=== PATIENT | male | born 1990 | race Caucasian/White ===

== ENCOUNTER 2024-11-27 04:08 | Inpatient (IN) | payer BC, SELFPAY ==
[2024-11-26 17:54] VITALS: BP 137/76
[2024-11-26 18:11] LABS: % Basophils 0.2 % (0-2); % Eosinophils 0.2 % (0-6); % Immature Granulocytes 0.4 % (0-0.5); % Monocytes 9.1 % (1.7-9.3); % Neutrophils 78.1 % (42.2-75.2); Absolute Immature Granulocytes 0.1 10^3/uL (0-0.05); Absolute Lymphocytes 1.6 10^3/uL (1.2-3.4); Absolute Monocytes 1.2 10^3/uL (0.1-0.6); Absolute Neutrophils 10.4 10^3/uL (1.4-6.5); Hematocrit 43.6 % (39.0-52.0); Hemoglobin 14.9 g/dL (13.0-18.0); Mean Corp Hgb Conc. 34.2 g/dL (33.0-37.0); Mean Corpuscular Hgb 28.6 pg (27.0-31.0); Mean Corpuscular Volume 83.7 fL (80.0-94.0); Mean Platelet Volume 9.8 fL (7.4-10.4); Nucleated Red Blood Cells % 0 % (-); Platelet Count 258 10^3/uL (130-400); Red Blood Cell Count 5.21 10^6/uL (4.70-6.10); Red Cell Dist. Width 12.2 % (11.5-14.5); White Blood Cell Count 13.4 10^3/uL (4.8-10.8)
[2024-11-26 18:29] LABS: ALT (SGPT) 28 U/L (0-50); AST (SGOT) 42 U/L (17-59); Albumin 4.9 g/dl (3.5-5.0); Alkaline Phosphatase 59 U/L (38-126); Blood Urea Nitrogen 14 mg/dl (9-20); Calcium 9.1 mg/dl (8.4-10.2); Carbon Dioxide 27 mmol/L (22-30); Chloride 95 mmol/L (98-107); Glucose 119 mg/dl (70-99); Potassium 4.1 mmol/L (3.5-5.1); Sodium 135 mmol/L (135-145); Total Bilirubin 1.1 mg/dl (0.2-1.3); Total Protein 7.9 g/dl (6.3-8.2); eGFR > 60.00
[2024-11-26 20:31] VITALS: BMI 24.3
--- NOTE | 2024-11-26 20:32 | ED.GENMED ---
History of Present Illness
<REX Cooper - Last Filed: 11/27/24 03:38>
General
Chief Complaint: Abdominal Pain
Source: patient
Exam Limitations: none
Time Seen by Provider: 11/26/24 20:16
History of Present Illness
History of Present Illness:
This is a 34 year old male that comes in with c/o abd pain. States that he started with lower abd pain about 24 hours ago. States that he has been up since yesterday as he did not sleep last night. States that he has pain when he had a BM and that
for a while he was going every 45-1 hour. States that his stool was getting smaller and smaller. States that it has a weird smell. States that his last BM was like Powder. States that he had chills when he go here and is nauseated. States that he is
also getting a headache. States that he went to the PCP and was sent to the ER. Denies any fever, chest pain, SOB, vomiting, diarrhea, dizziness, urinary burning.
Past History
<REX Cooper - Last Filed: 11/27/24 03:38>
Past History
ED Past Medical History: Arrthythmia (Palpitations)
ED Past Surgical History: None
Social History
Tobacco: Non-smoker
Alcohol: None
Drug: None
Personal: Single
Living: with family
Employment: Employed
Review of Systems
<REX Cooper - Last Filed: 11/27/24 03:38>
Review of Systems
All Other Systems: ROS reviewed and negative except as documented in HPI and ROS
Constitutional: Reports chills; Denies fever
EENT: Reports no symptoms
Respiratory: Reports no symptoms; Denies cough or trouble breathing
Cardiac: Reports no symptoms; Denies chest pain
ABD/GI: Reports abdominal pain and nausea; Denies vomiting or diarrhea
: Reports no symptoms; Denies dysuria, frequency or urgency
Musculoskeletal: Reports no symptoms
Skin: Reports no symptoms
Neurological: Reports headache; Denies dizzy
Psychiatric: Reports no symptoms
Phy Exam
<REX Cooper - Last Filed: 11/27/24 03:38>
General Physical Exam
General Presentation: mild distress
General age: appears stated age
General Skin: warm and dry
General Habitus: normal
General Mental: alert
General Hydration: dry mucous membranes
ENT Exam
ENT Exam: TM's normal, pharynx normal and neck supple
Eye Exam
Eye Exam: EOMI
Cardiovascular Exam
Cardiovascular Exam: regular rate/rhythm, no edema, no murmur and normal peripheral pulses
Pulmonary Exam
Pulmonary Exam: lungs clear, no respiratory distress, no rales, chest non tender, no crackles, no rhonchi, no wheezing and no cough
Gastrointestinal Exam
Gastrointestinal Exam: normal bowel sounds, soft, no organomegaly, no pulsatile mass, non distended and tender (Right lower abd tenderness with palpation Positive for Rebound tenderness)
Musculoskeletal Exam
Musculoskeletal Exam: full ROM and no edema
Skin Exam
Skin Exam: normal color, warm/dry, no rash and no petechia
Psychiatric Exam
Psychiatric Exam: normal mood/affect
Course
<REX Cooper - Last Filed: 11/27/24 03:38>
Orders/Labs/Results
Orders:
Orders
11/26/24 17:59
Complete Blood Count/With Diff Urgent
Comprehensive Metabolic Panel Urgent
11/26/24 20:29
0.9% Sodium Chloride 1000 ml [Nss] 1,000 ml IV BOLUS
HYDROmorphone [Dilaudid] 0.5 mg IV NOW STA
Ondansetron Injectable [Zofran] 4 mg IV NOW STA
11/26/24 20:31
Iohexol [Omnipaque] See Protocol PO NOW STA
11/26/24 20:32
CT Abd/pel W Iv And Oral Contr Urgent
Comment:
Reason For Exam: Right lower abd pain
11/26/24 21:56
Urinalysis Reflex To Culture Urgent
Date Specimen was Collected: 11/26/24
Time Specimen was Collected: 21:51
11/27/24 02:33
Acetaminophen 1000MG/100Ml [Ofirmev] 1,000 mg in 100 ml IV ONCE
Acetaminophen IV Indication:: ED Narcotic Naive Pt-ONCE
Abnormal Lab Results
11/26/24 11/26/24
17:59 21:56
WBC 13.4 H 10^3/uL
(4.8-10.8)
Abs Immat Gran (auto) 0.1 H 10^3/uL
(0-0.05)
Absolute Neuts (auto) 10.4 H 10^3/uL
(1.4-6.5)
Absolute Monos (auto) 1.2 H 10^3/uL
(0.1-0.6)
Neutrophils % 78.1 H %
(42.2-75.2)
Lymphocytes % 12.0 L %
(20.5-51.1)
Chloride 95 L mmol/L
(98-107)
Glucose 119 H mg/dl
(70-99)
Urine Ketones 1+ A
(Negative)
11/26/24 17:59
11/26/24 17:59
Leukocytosis, Hypochloremia,Hyperglycemia. Urine negative for infection.
Vital Signs
Initial and Last Documented VS:
Initial Vital Signs
Temp Pulse Resp BP Pulse Ox
98.2 F 102 16 137/76 100
11/26/24 17:54 11/26/24 17:54 11/26/24 17:54 11/26/24 17:54 11/26/24 17:54
Last Documented Vital Signs
Temp Pulse Resp BP Pulse Ox
98.2 F 92 18 110/58 97
11/26/24 17:54 11/27/24 00:03 11/27/24 00:03 11/27/24 00:03 11/27/24 00:03
<Dread Vyas, - Last Filed: 11/26/24 20:53>
Orders/Labs/Results
Orders:
Orders
11/26/24 17:59
Complete Blood Count/With Diff Urgent
Comprehensive Metabolic Panel Urgent
11/26/24 20:29
0.9% Sodium Chloride 1000 ml [Nss] 1,000 ml IV BOLUS
HYDROmorphone [Dilaudid] 0.5 mg IV NOW STA
Ondansetron Injectable [Zofran] 4 mg IV NOW STA
11/26/24 20:31
Iohexol [Omnipaque] See Protocol PO NOW STA
11/26/24 20:32
CT Abd/pel W Iv And Oral Contr Urgent
Comment:
Reason For Exam: Right lower abd pain
11/26/24 21:56
Urinalysis Reflex To Culture Urgent
Date Specimen was Collected: 11/26/24
Time Specimen was Collected: 21:51
11/27/24 02:33
Acetaminophen 1000MG/100Ml [Ofirmev] 1,000 mg in 100 ml IV ONCE
Acetaminophen IV Indication:: ED Narcotic Naive Pt-ONCE
Abnormal Lab Results
11/26/24 11/26/24
17:59 21:56
WBC 13.4 H 10^3/uL
(4.8-10.8)
Abs Immat Gran (auto) 0.1 H 10^3/uL
(0-0.05)
Absolute Neuts (auto) 10.4 H 10^3/uL
(1.4-6.5)
Absolute Monos (auto) 1.2 H 10^3/uL
(0.1-0.6)
Neutrophils % 78.1 H %
(42.2-75.2)
Lymphocytes % 12.0 L %
(20.5-51.1)
Chloride 95 L mmol/L
(98-107)
Glucose 119 H mg/dl
(70-99)
Urine Ketones 1+ A
(Negative)
11/26/24 17:59
11/26/24 17:59
Vital Signs
Initial and Last Documented VS:
Initial Vital Signs
Temp Pulse Resp BP Pulse Ox
98.2 F 102 16 137/76 100
11/26/24 17:54 11/26/24 17:54 11/26/24 17:54 11/26/24 17:54 11/26/24 17:54
Last Documented Vital Signs
Temp Pulse Resp BP Pulse Ox
98.2 F 92 18 110/58 97
11/26/24 17:54 11/27/24 00:03 11/27/24 00:03 11/27/24 00:03 11/27/24 00:03
<Tremayne Hoang MD - Last Filed: 11/27/24 00:58>
Orders/Labs/Results
Orders:
Orders
11/26/24 17:59
Complete Blood Count/With Diff Urgent
Comprehensive Metabolic Panel Urgent
11/26/24 20:29
0.9% Sodium Chloride 1000 ml [Nss] 1,000 ml IV BOLUS
HYDROmorphone [Dilaudid] 0.5 mg IV NOW STA
Ondansetron Injectable [Zofran] 4 mg IV NOW STA
11/26/24 20:31
Iohexol [Omnipaque] See Protocol PO NOW STA
11/26/24 20:32
CT Abd/pel W Iv And Oral Contr Urgent
Comment:
Reason For Exam: Right lower abd pain
11/26/24 21:56
Urinalysis Reflex To Culture Urgent
Date Specimen was Collected: 11/26/24
Time Specimen was Collected: 21:51
11/27/24 02:33
Acetaminophen 1000MG/100Ml [Ofirmev] 1,000 mg in 100 ml IV ONCE
Acetaminophen IV Indication:: ED Narcotic Naive Pt-ONCE
Abnormal Lab Results
11/26/24 11/26/24
17:59 21:56
WBC 13.4 H 10^3/uL
(4.8-10.8)
Abs Immat Gran (auto) 0.1 H 10^3/uL
(0-0.05)
Absolute Neuts (auto) 10.4 H 10^3/uL
(1.4-6.5)
Absolute Monos (auto) 1.2 H 10^3/uL
(0.1-0.6)
Neutrophils % 78.1 H %
(42.2-75.2)
Lymphocytes % 12.0 L %
(20.5-51.1)
Chloride 95 L mmol/L
(98-107)
Glucose 119 H mg/dl
(70-99)
Urine Ketones 1+ A
(Negative)
11/26/24 17:59
11/26/24 17:59
Vital Signs
Initial and Last Documented VS:
Initial Vital Signs
Temp Pulse Resp BP Pulse Ox
98.2 F 102 16 137/76 100
11/26/24 17:54 11/26/24 17:54 11/26/24 17:54 11/26/24 17:54 11/26/24 17:54
Last Documented Vital Signs
Temp Pulse Resp BP Pulse Ox
98.2 F 92 18 110/58 97
11/26/24 17:54 11/27/24 00:03 11/27/24 00:03 11/27/24 00:03 11/27/24 00:03
<REX Cooper - Last Filed: 11/27/24 03:38>
MDM/Problems Addressed
Differential Diagnosis Includes:
Appendicitis,
MDM/Problems Addressed:
This is a 34 year old male that comes in with c/o lower abd pain for the past 24 hours.
Will check labs and get CT scan. Will give IV fluids.
Back into see patient. Explained that he has an appendicitis. Patient is not sure if he wants to have his appendix out. Explained that he would normally be admitted and started on antibiotics. He can discuss this with the surgeon in the morning.
Explained that there have been times that they have not taken the appendix out but this is again a decision made by the Surgeon and patient. Will have Dr. Hoang speak with patient.
Patient finally agreed about admission but refusing antibiotics. Message sent to Dr. Will will have [facility] [employer] [facility] admit.
Have had many conversations about patient taking the IV antibiotic. Patient now wants to see the adverse reaction. Will order medication so if patient Decided to take it the nurses can give the medication.
Chronic conditions affecting care:
NA
Acute Exacerbation and/or Progression of Chronic Illness:
NA
<REX Cooper - Last Filed: 11/27/24 03:38>
*Radiology
Radiology exam reviewed: radiology read reviewed (CT night hawk-There is apparent wall thickening of the distal/terminal ileum. The appendix is slightly preomient mearusing 9 to 10mm in diamteter and appears more focally thickened/enlarged distally
(202/27 and 201/61) measuring up to 14mm. Findings are suspicious for acute appendicitis in the match) and other (CT cont- clinical scenario. No free fluid or abscess. )
*Pulse Oximetry
Patient hypoxic: no
*EKG
Interpreted by ED Provider?: NA
Rate: EKG- N/A
*Tenter Frame Back Tender Interpretation
Rate: Tenter Frame Back Tender- N/A
*Critical Care Note
Total Time (30-74mins, 75-104mins- exclusive of procedures): Not Applicable
<Tremayne Hoang MD - Last Filed: 11/27/24 00:58>
Update Note
Update Note:
0050.... I had a lengthy discussion with this patient concerning his diagnosis. 24 hours of progressive abdominal pain lower quadrant. On exam quite tender in the right lower quadrant. No rebound or guarding no mass or hernia. Warm and dry.
Perfusing well. Labs and CT report were gone over with the patient. Copy of CT report was given to the patient. Do our best scientific knowledge at this point this appears to be an early appendicitis. Recommendation was IV antibiotics overnight,
surgical evaluation and likely appendectomy tomorrow if surgery is in agreement with this diagnosis. However patient was questioning the diagnosis the radiologic read the use of antibiotics. Lengthy lengthy discussion where I made it clear he is
the boss and can make his own decisions however each of these decisions have their own ramifications and risks. Again it was stressed that our recommendation is admission IV antibiotics possible pending appendectomy. But he is considering his
options now
ED Attending Note
<REX Cooper - Last Filed: 11/27/24 03:38>
-
Portions of this chart may have been created with voice recognition software.� Occasional wrong word or��sound alike� substitutions may have occurred due to the inherent limitations of voice recognition software.
<Dread Vyas DO - Last Filed: 11/26/24 20:53>
ED Attending Note
Patient seen and examined by attending physician: Yes
I performed the substantive portion of visit, reviewed & personally made and approve the management plan that is documented in note by myself or SOFIA.: Yes
ED Attending Note:
I evaluated the patient at bedside. Mild leukocytosis noted. He is moderately tender in the lower abdomen. I had a very long extensive conversation about the use of CT dye both orally and IV. Given his lack of body fat, I recommended both oral
and IV contrast. He was very reluctant stating that he has had reactions to Cipro and lidocaine in the past that were long-term and could not be treated. I offered and considered doing a noncontrast CT. Ultimately the patient accepted to do the
CAT scan with the oral and IV contrast.
Discharge Plan
Departure
Patient Disposition: Admit
Date of Disposition: 11/27/24
Time of Disposition: 01:59
Admit to: Med/Surg
Presentation/result/management discussed w/ accepting MD/DO: Dr. Will
Patient with high blood pressure during this ER visit?: No
Condition: Good
Covid-19: Not Applicable
Discharge Problem:
Acute appendicitis
Prescriptions:
No Action
No Meds [No Current Medications]
0
Referrals:
Eliezer Arellano MD [Family Provider] -
Interventions
Interventions:
*Risk Screen - Suicide Last Done: 11/26/24 17:56
*General Assessment Last Done: 11/26/24 22:11
*Neglect/Abuse Screening Last Done: 11/26/24 17:56
*ED COVID-19 Vaccine History Last Done: 11/26/24 22:11
BZ-Wpynhk-Ffjhhovqzt Assessment Last Done: 11/26/24 22:11
Discharge Date and Time
Print Language: OCCITAN
[2024-11-26] MEDS: OMNIPAQUE 50 ML PO (20:57)
[2024-11-26] MEDS: NSS 1000 IV (21:10)
[2024-11-26 22:23] LABS: Urine Albumin Negative (Neg - Trace); Urine Bilirubin Negative (Negative); Urine Character Clear (Clear); Urine Color Yellow; Urine Glucose Negative (Negative); Urine Ketone 1+ (Negative); Urine Leukocyte Negative (Negative); Urine Nitrite Negative (Negative); Urine Occult Blood Negative (Negative); Urine Urobilinogen Negative (Neg - 1+)
[2024-11-27 00:03] VITALS: BP 110/58
--- NOTE | 2024-11-27 03:00 | HPS.HSE ---
Addendum entered and electronically signed by Delon Will MD 11/27/24 11:48:
Patient seen and examined.
Patient is a 34 yo M with a PMH notable for severe myalgias, neuropathy, and known rupture following oral Cipro who presents with lower abdominal pain and discomfort. Colt states that his symptoms began approximately 24 to 6 hours ago. He notes
eating unusual just prior to the onset of his symptoms with having multiple close of garlic as well as questionably cooked seafood. He reports lower abdominal/pelvic/RLQ discomfort. Notes association with his rectum and discomfort when having
bowel movements. He notes association with his bladder and discomfort with urinating. He reports a tingling sensation throughout his colon. No fevers or chills. Initial issues with nausea and vomiting which have subsided. No bloody or mucousy
stools. Previously was having URI type symptoms days 2 weeks ago. Denies any prior episodes or issues with his appendix.
Gen: NAD
Abd: soft, tender in RLQ/suprapubic region, ND, no diffuse peritonitis
Labs and CT scan imaging were reviewed.
Patient is a 34 yo M p/w acute appendicitis
In-depth discussion had with the patient. All questions answered. The natural history and pathophysiology of appendicitis was reviewed. Anatomy was reviewed. Workup thus far including labs and CT scan imaging were reviewed. Options for
management including medical management with antibiotics versus surgical management with appendectomy were considered and discussed. The pros and cons of both approaches was discussed. Specifically, we discussed side effects of antibiotics,
failure of antibiotic treatment with potential for worsening appendicitis and rupture, which are episodes of appendicitis versus surgical risks. We discussed that we would treat with penicillin-based antibiotics; Zosyn and Augmentin on discharge.
He states that he has previously tolerated penicillin antibiotics. He is currently refusing any antibiotic treatment in the interim and on admission.
We discussed a laparoscopic appendectomy. The procedure itself, as well as the risks, benefits, and alternatives was discussed. Specifically, we discussed the risks of bleeding, infection, injury to surrounding structures (bowel), staple line
leak, need for open procedure. Typical postprocedure recovery was discussed.
All questions answered. Patient to review above treatment options before making finalize decision.
Original Note:
Family Physician
-
Family Physician: Eliezer Arellano
Chief Complaint
-
Abdominal pain
History of Present Illness
Patient is a 34 year old male that comes in with c/o lower abd pain. States that he started with lower abd pain about 24 hours ago. States that he has been up since yesterday as he did not sleep last night. States that he has pain when he had a BM
and that for a while he was going every 45 minutes -1 hour. States that his stool was getting smaller and smaller. States that it has a weird smell. States that his last BM was like Powder. States that he had chills when he go here and is nauseated.
States that he is also getting a headache. States that he went to the PCP and was sent to the ER. Denies any fever, chest pain, SOB, vomiting, diarrhea, dizziness, urinary burning.
In emergency department: VSS, patient afebrile, Labs showed Leukocytosis, WBC 13.4, BMP unremarkable. UA w/slight ketones +1. Patient received NSS 1L bolus x 1, refused pain and nausea medications.
CT abdomen/pelvis w IV and Oral contrast
Radiology exam reviewed: radiology read reviewed (CT night hawk-There is apparent wall thickening of the distal/terminal ileum. The appendix is slightly prominent measuring 9 to 10mm in diameter and appears more focally thickened/enlarged distally
( and 201/) measuring up to 14mm. Findings are suspicious for acute appendicitis in the match) and other (CT cont- clinical scenario. No free fluid or abscess. )
Patient is being admitted under Surgical services, accepted by Dr. Will.
Medical History
Past Medical History
Past Medical History: Reports Arrhythmia (Hx of palpitations), GERD and Psychiatric (Anxiety disorder)
Past Surgical History: Reports Other (colonoscopy 03/2024)
Social History
Tobacco: Non-smoker
Alcohol: None
Drug: None
Personal: Single
Living: Alone
Employment: Not Employed
Family History
Family History: Cancer (Mother Follicular lymphoma ) and Other (Father, , Diabetes/complications from diabetes)
Allergies / Home Medications
Allergies reflects when Allergies were last updated in [facility].
Home Medications with original date entered in [facility]
Allergy/Medication List:
Patient Allergies
Allergy/AdvReac Type Severity Reaction Status Date / Time
ibuprofen Allergy Unknown Verified 11/26/24 17:56
Quinolones Allergy Unknown Verified 11/26/24 17:56
Home Medications
�Medication �Instructions �Recorded
No Meds [No Current Medications] 0 12/01/12
If medication reconciliation has not been performed, why?: Medication List N/A
Review of Systems
-
History Source: Patient
Constitutional: Reports Sleep Disturbance (unable to sleep) and Chills
EENT: Reports No Symptoms
Respiratory: Reports No Symptoms
Cardiac: Reports No Symptoms
Abdomen/GI: Reports Abdominal Pain (lower abdominal) and Nausea
: Reports No Symptoms
Musculoskeletal: Reports No Symptoms
Skin: Reports No Symptoms
Neurological: Reports Headache
Endocrine: Reports No Symptoms
Hematologic/Lymphatic: Reports No Symptoms
Physical Exam
Vital Signs
Vital Signs
Temp Pulse Resp BP Pulse Ox
98.2 F 92 18 110/58 97
11/26/24 17:54 11/27/24 00:03 11/27/24 00:03 11/27/24 00:03 11/27/24 00:03
Physical Exam
General: Appears in Distress (mild), Pain (Tender to palpation t/o lower abdomen) and Poor Appetite
HEENT: NormoCephalic and Moist mucous membranes
Respiratory: Clear and Non Labored Respirations
Cardiac: Regular Rhythm
GI: Non Distended and Tender (t/o b/l lower abdomen, + for rebound tendernexx)
Musculoskeletal: No Cyanosis and No Edema
Skin: Warm and Dry
Neuro: Awake, Alert, Oriented and AO x 3
Psych: Anxious
Laboratory Results
-
11/26/24 17:59
11/26/24 17:59
Laboratory Results
Total Bilirubin 1.1 mg/dl (0.2-1.3) 11/26/24 17:59
AST 42 U/L (17-59) 11/26/24 17:59
ALT 28 U/L (0-50) 11/26/24 17:59
Alkaline Phosphatase 59 U/L (38-126) 11/26/24 17:59
Data Reviewed
-
CT Scan: Report Reviewed by me
Lab Data: Labs Reviewed by me, Discussed with Physician and Discussed with Patient
Impression/Plan
-
IMPRESSION:
Patient is a 34 year old male that comes in with c/o lower abd pain. States that he started with lower abd pain about 24 hours ago.
PLAN:
Acute Appendicitis/
Abdominal pain
-Admit to surgical services, accepted by Dr. Will
-Patient is refusing IV antibiotics, states he does not want ordered at this time. He will research and advise of his decision.
Patient has taken penicillin and amoxicillin in the past with no adverse/allergic reactions.
(Patient admitted to a very serious reaction to PO Cipro in 2007, which took years to recuperate from and he does not want to go through that experience again).
-Pain medication: Patient stated he will only accept Tylenol at this time. Ordered Tylenol 1g IV Q6H PRN
-Zofran
-NPO, IV fluids ordered
PMHx:
Anxiety - not on medications at this time
GERD - not on medications at this time
DVT Prophylaxis: SCD's
Code status: Full code
[2024-11-27] MEDS: OFIRMEV 100 IV (03:28)
[2024-11-27 03:35] VITALS: BP 100/50
[2024-11-27 05:18] VITALS: BMI 23.3
--- NOTE | 2024-11-27 05:49 | PTCARENOTE ---
Addendum entered by Effie Becerra RN 11/27/24 06:08:
Pt also refusing IVFs and TEDs/SCDs at this time. Pt educated on the purpose of these and said he is not opposed to 'trying them later after speaking with the surgeon.'
Original Note:
Pt arrive to [facility] at 0510 from the ED in a stretcher. Pt walked from stretcher to bed without incident. Admission questions answered by pt and head to toe complete. Pt refusing antibiotics ordered and requesting to 'wait for the Doctor to come and
talk to him.' Pt oriented to room and call russo. Bed locked and in lowest position. Care ongoing.
[2024-11-27 07:28] VITALS: BP 112/63
--- NOTE | 2024-11-27 08:43 | W.PN.SURGUPD ---
Addendum entered and electronically signed by Delon Will MD 11/27/24 16:04:
Patient has opted for antibiotic treatment. Discussed that ideally he would be on Zosyn and transition to Augmentin with improvement in symptoms or WBC count. Patient states that he does not wish to take Zosyn and will only take Augmentin. Risks
of this approach were relayed. Antibiotics is better than no antibiotics at all and we will order Augmentin and monitor symptoms. Repeat labs ordered.
Addendum entered and electronically signed by Delon Will MD 11/27/24 14:40:
Patient has not risks have been clearly explained to the patient. Made a decision on his treatment course. Refusing antibiotics. No decision on appendectomy.
Addendum entered and electronically signed by Delon Will MD 11/27/24 09:52:
Recommend IV antibiotics (Zosyn) and appendectomy. Patient currently refusing to make any medical decisions at this time and 'wishes to sleep'. Called and spoke with patient's emergency contact (his mother) and relayed issues with coordinating
care. According to the mother he is mentally capable of making medical decisions at baseline. Risks of worsening appendicitis and potentially rupture have been previously reviewed with the patient and his mother.
Original Note:
Surgical Update
Surgical Update
Attempted to see the patient. Patient has nonsensical and not making clear medical decisions. Will attempt to reevaluate later this morning, if not will need to contact his emergency contact to aid in management.
--- NOTE | 2024-11-27 09:01 | PTCARENOTE ---
Had a 20 minute discission with patient regarding plan of care, care team, surgeon name, physician orders, care flow on surgical unit, and ordered mediations. Patient was asking surgical and imaging questions, RN relayed to patient that these are
questions he will have to ask his surgeon or an MD as we (RN) can't interpret CT scans or give him a surgical treatment plan without first consulting a surgeon.
He is A&Ox4, vitals stable, endorses feeling tired and states he 'only got 4 hours of sleep over the past 3 days'. Pt continued on to state that 'he needs sleep before he makes an decision on care plan'. RN explained call russo and vital sign
frequency on surgical unit to patient and left patient to sleep/speak with his mother on his cellphone which he asked RN to step out of the room for.
--- NOTE | 2024-11-27 10:54 | PTOTSP ---
DC OT eval order, patient is 34 y/o ind in room focused on speaking to surgeon. Discussed with nurse.
--- NOTE | 2024-11-27 12:34 | PTCARENOTE ---
Spent another 15 minutes talking to patient about scheduled OR time, IV fluid order, and antibiotic orders. Educated patient on rationale for each order and time of OR case with Dr. Will. Pt is very hesitant to receive IV abx, pt was given
literature on the medication by MD to review on his own time. RN relayed to patient that based on surgeons note- surgery and IV are the recommend treatment plan at this time. Pt explained to nurse that surgeon said he could go home with order for
antibiotics and forgo surgery if he wants as well.
--- NOTE | 2024-11-27 13:11 | CM ---
Met with pt at bedside
Pt reports he lives alone in a 2 story town home; 6 steps to enter, 16 steps to 2nd fl
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
DME - none
SNF/HH - denies past hx
PCP - Eliezer Arellano
Pharm - [facility]
Poss OR this PM - adm for acute appendicitis
Plan - anticipate home no needs
[2024-11-27 15:23] VITALS: BP 110/61
[2024-11-27] MEDS: AUGMENTIN 875 MG/125 MG 1 TABLET PO (20:44)
--- NOTE | 2024-11-27 23:32 | PTCARENOTE ---
Provided educated on importance of taking zosyn. Pt continuing to refuse and states 'will think about it.'
[2024-11-27 23:50] VITALS: BP 126/76
--- NOTE | 2024-11-28 02:45 | DOWNTIME ---
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 Downtime documentation of patient's care, including medication administrations, has been reconciled in the electronic record per guidelines. Refer to the
patient's paper chart under the miscellaneous tab to see printed paper medication records and downtime forms.
--- NOTE | 2024-11-28 04:10 | PTCARENOTE ---
Spent 10 minutes educating pt on reason for the need for IV abx. Pt still hesitant and feels that he is actually 'getting better on his own.' Pt states he will think about taking the IV abx in the am but wants to 'hold off for now to do further
research on his own'. Pt found in bathroom for 30 minutes and pt stated he was 'in a trance researching.' Advised pt importance of getting sleep tonight. Care ongoing.
[2024-11-28 07:30] VITALS: BP 112/62
[2024-11-28 08:19] LABS: Hematocrit 40.2 % (39.0-52.0); Hemoglobin 13.9 g/dL (13.0-18.0); Mean Corp Hgb Conc. 34.6 g/dL (33.0-37.0); Mean Corpuscular Hgb 28.6 pg (27.0-31.0); Mean Corpuscular Volume 82.7 fL (80.0-94.0); Mean Platelet Volume 10.5 fL (7.4-10.4); Platelet Count 258 10^3/uL (130-400); Red Blood Cell Count 4.86 10^6/uL (4.70-6.10); Red Cell Dist. Width 12.1 % (11.5-14.5)
[2024-11-28 08:53] LABS: Blood Urea Nitrogen 17 mg/dl (9-20); Calcium 9.1 mg/dl (8.4-10.2); Carbon Dioxide 24 mmol/L (22-30); Chloride 98 mmol/L (98-107); Estimated Creatinine Clearance > 125 ml/min; Glucose 75 mg/dl (70-99); Potassium 3.9 mmol/L (3.5-5.1); Sodium 135 mmol/L (135-145); eGFR > 60.00
[2024-11-28] MEDS: AUGMENTIN 875 MG/125 MG 1 TABLET PO ×2 (09:55→19:25)
--- NOTE | 2024-11-28 10:44 | W.PN.GS2 ---
Today's Communication / Plan
-
reg diet
augmentin
Assessment / Plan
-
34M with acute appendicitis
AFVSS, clinically improving, minimally ttp on exam
Leukocytosis resolved
A very long discussion was had with the patient, we discussed his medical history, concerns about abx, we reviewed the images and the report together, discussed the pros and cons of operative vs non-op mgmt in acute uncomplicated appendicitis.
He feels he is improving and prefers to stay on the non-op mgmt track. He agrees to taking augmentin for at least 7 days, I expect his pain to be totally resolved by then, if not he may need further abx.
Plan to cont augmentin PO and adv to reg diet. He is unsure if he feels comfortable with DC today, will re-eval this afternoon.
Subjective Data
-
Date of Service: November 28, 2024
Pain improved, denies f/c, ambulating, voiding, elizabeth cld, denies n/v
Objective Data
-
Intake and Output
11/27/24 11/28/24 11/29/24
06:59 06:59 06:59
Intake Total 960 / 960
Balance 960 / 960
Intake:
Oral fluids 960 / 960
Other:
Number of approximated SMALL 3
amounts of urine
Number of approximated MODERATE 1 3
amounts of urine
Vital Signs
Temp Pulse Resp BP Pulse Ox
98.1 F 78 16 112/62 98
11/28/24 07:30 11/28/24 07:30 11/28/24 07:30 11/28/24 07:30 11/28/24 07:30
Lab Results
11/28/24 06:54
11/28/24 06:54
Calcium 9.1 mg/dl (8.4-10.2) 11/28/24 06:54
Total Bilirubin 1.1 mg/dl (0.2-1.3) 11/26/24 17:59
AST 42 U/L (17-59) 11/26/24 17:59
ALT 28 U/L (0-50) 11/26/24 17:59
Alkaline Phosphatase 59 U/L (38-126) 11/26/24 17:59
Total Protein 7.9 g/dl (6.3-8.2) 11/26/24 17:59
Albumin 4.9 g/dl (3.5-5.0) 11/26/24 17:59
Physical Exam
-
Gen: NAD
Abd: soft, minimal ttp to suprapubic region
Patient has a ramos catheter: No
Patient has a central line: No
--- NOTE | 2024-11-28 14:42 | CM ---
Chart reviewed
Started PO antibiotics
Surgery to assess later in day - poss home with PO antibiotics
Plan - anticipate home no needs
--- NOTE | 2024-11-28 15:22 | W.PN.UPDATE ---
Update Note
Progress Note Update
Pt re-evaluated. He continues to improve and has been ambulating more and had a more normal BM. He tolerated a reg diet without issues. His pain is much better. He is agreeable to DC and agrees to cont PO abx for 6 more days.
--- NOTE | 2024-11-28 15:23 | W.DS.TRANS ---
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
-
Discharge Instructions:
Discharge Diagnosis/Procedures Acute appendicitis
Diet No restrictions
Activity No strenuous activity
Additional Activity Resume normal activity when you feel up to it, I
expect this to be toward the end of the
antibiotics course or soon after completion
Bathing Restrictions None
Instructions: Appendicitis in adults
Stand-Alone Forms:
Changes to Home Medications: No
Discharge Medications:
DC Medications w/original date entered in [facility]
No Meds [No Current Medications] 0 12/01/12
amoxicillin 875 mg-potassium clavulanate 125 mg tablet 1 tab PO Q12 antibiotic #12 tabs 11/28/24
Home Medication Changes
Pending Results: No
[2024-11-28 16:01] VITALS: BP 122/74
[2024-11-28 19:52] VITALS: BP 134/71
== END 2024-11-28 19:50 | disposition home or self-care (01) | DRG 395 ==
LOC: 2 SOUTH 04:08
PROVIDERS: Clinical Nurse Specialist Family Health; Emergency Medicine; ADMITTING PHYSICIAN Surgery; EMERGENCY PHYSICIAN Emergency Medicine; FAMILY PHYSICIAN Family Medicine
DX: K35.80 Unspecified acute appendicitis (principal); K21.9 Gastro-esophageal reflux disease without esophagitis; F41.9 Anxiety disorder, unspecified; G62.9 Polyneuropathy, unspecified; M79.10 Myalgia, unspecified site; Z88.8 Allergy status to other drugs, medicaments and biological substances
CPT/HCPCS: 74177; 80048; 80053; 81003; 85025; 85027; 96361; 96374; 99285; Q9967

== ENCOUNTER 2025-06-21 01:55 | Day surgery (SDC) | payer BC, SELFPAY ==
[2025-06-20 20:05] VITALS: BMI 24.3
[2025-06-20 20:07] VITALS: BP 118/64
[2025-06-20 20:20] LABS: Hematocrit 43.4 % (39.0-52.0); Hemoglobin 15.0 g/dL (13.0-18.0); Mean Corp Hgb Conc. 34.6 g/dL (33.0-37.0); Mean Corpuscular Volume 83.3 fL (80.0-94.0); Nucleated Red Blood Cells % 0 % (-); Platelet Count 163 10^3/uL (130-400); Red Cell Dist. Width 12.7 % (11.5-14.5)
[2025-06-20 20:42] LABS: ALT (SGPT) 29 U/L (0-50); AST (SGOT) 28 U/L (17-59); Albumin 5.0 g/dl (3.5-5.0); Alkaline Phosphatase 57 U/L (38-126); Blood Urea Nitrogen 15 mg/dl (9-20); Calcium 9.3 mg/dl (8.4-10.2); Carbon Dioxide 25 mmol/L (22-30); Chloride 101 mmol/L (98-107); Glucose 122 mg/dl (70-99); Potassium 4.0 mmol/L (3.5-5.1); Sodium 135 mmol/L (135-145); Total Protein 8.3 g/dl (6.3-8.2); eGFR > 60.00
--- NOTE | 2025-06-20 21:37 | ED.GENMED ---
History of Present Illness
General
Chief Complaint: Abdominal Pain
Source: patient
Exam Limitations: none
Time Seen by Provider: 06/20/25 21:24
Nursing documentation reviewed up to this point in time: agreed with
History of Present Illness
History of Present Illness:
35-year-old male presenting to the emergency department today with concerns of right lower quad abdominal pain over the past 18 hours. Gradually worsening throughout the day today associated nausea. No fevers. Was diagnosed with appendicitis 8
months ago treated medically.
Past History
Past History
ED Past Medical History: Arrthythmia (Palpitations)
ED Past Surgical History: None
Social History
Tobacco: Non-smoker
Alcohol: None
Drug: None
Personal: Single
Living: with family
Employment: Employed
Review of Systems
Review of Systems
Allergies reviewed?: Yes
All Other Systems: ROS reviewed and negative except as documented in HPI and ROS
Phy Exam
Physical Exam
Physical Exam:
GENERAL: Alert , in no apparent distress
EYE: pupils equal and reactive
NECK: Supple, no significant adenopathy.
ENT: o/p clr, mmm.
CARDIAC: Regular rate and rhythm .
LUNGS: Clear breath sounds bilaterally, no acute respiratory distress, no wheezes/rales/rhonchi
ABDOMEN:
NEUROLOGICAL: Alert and oriented, no focal neuro deficits
SKIN: Warm and dry, skin intact.
MUSCULOSKELETAL: No edema, well perfused.
PSYCH: Normal and appropriate interaction.
Right lower quadrant pain otherwise soft abdomen
Course
Orders/Labs/Results
Orders:
Orders
06/20/25 20:13
CMP [Comprehensive Metabolic Panel] Urgent
Complete Blood Count/With Diff Urgent
06/20/25 21:32
CT Abd/Pel (IV only)-DH only Urgent
Comment:
Reason For Exam: RLQ pain
Ketorolac [Toradol] 15 mg IV NOW STA
06/20/25 21:33
0.9% Sodium Chloride 1000 ml [Nss] 1,000 ml IV BOLUS
Abnormal Lab Results
06/20/25
20:13
WBC 12.8 H 10^3/uL
(4.8-10.8)
Absolute Neuts (auto) 8.8 H 10^3/uL
(1.4-6.5)
Absolute Monos (auto) 1.1 H 10^3/uL
(0.1-0.6)
Glucose 122 H mg/dl
(70-99)
Total Protein 8.3 H g/dl
(6.3-8.2)
06/20/25 20:13
06/20/25 20:13
Vital Signs
Initial and Last Documented VS:
Initial Vital Signs
Temp Pulse Resp BP Pulse Ox
98.5 F 88 18 118/64 98
06/20/25 20:07 06/20/25 20:07 06/20/25 20:07 06/20/25 20:07 06/20/25 20:07
Last Documented Vital Signs
Temp Pulse Resp BP Pulse Ox
98.9 F 96 18 123/57 100
06/20/25 22:41 06/20/25 23:00 06/20/25 23:00 06/20/25 23:00 06/20/25 23:00
MDM/Problems Addressed
MDM/Problems Addressed:
35-year-old male presenting to the emergency department today with concerns of right lower quadrant pain worsening throughout the day today. Was diagnosed with appendicitis earlier this year and treated medically. Here white count 12.[address] scan showing acute appendicitis without complications. Case discussed with Dr. Saldaña who accepted care. Results were discussed with the patient currently refusing IV antibiotics as he has had complications with antibiotics in the
past. Feeling much better after receiving Toradol here.
*Pulse Oximetry
SaO2: 98
Oxygen Mode of Delivery: Room air
Patient hypoxic: no (100)
*Critical Care Note
Total Time (30-74mins, 75-104mins- exclusive of procedures): Not Applicable
ED Attending Note
-
Portions of this chart may have been created with voice recognition software.� Occasional wrong word or��sound alike� substitutions may have occurred due to the inherent limitations of voice recognition software.
Discharge Plan
Departure
Patient Disposition: Admit
Date of Disposition: 06/20/25
Time of Disposition: 23:58
Admit to: Med/Surg
Admit to doctor: Piotr
Presentation/result/management discussed w/ accepting MD/DO: General Surgery
Patient with high blood pressure during this ER visit?: No
Condition: Good
Covid-19: Not Applicable
Discharge Problem:
Acute appendicitis
Prescriptions:
No Action
No Current Medications
0
Referrals:
NONE,* [Family Provider, Internal Medicine]
Interventions
Interventions:
*Risk Screen - Suicide Last Done: 06/20/25 20:06
*General Assessment Last Done: 06/20/25 20:07
*Neglect/Abuse Screening Last Done: 06/20/25 20:07
*ED- Fall Risk Assessment Last Done: 06/20/25 20:07
*ED COVID-19 Vaccine History Last Done: 06/20/25 20:07
BE-Lkjvzj-Sjymbjjoxh Assessment Last Done: 06/20/25 23:07
Discharge Date and Time
Print Language: BURUNDIAN
[2025-06-20] MEDS: TORADOL 15 MG IV (21:45)
[2025-06-20] MEDS: NSS 1000 IV (21:46)
--- NOTE | 2025-06-20 21:51 | EDRN ---
Pt refusing to go to CT scan at this time. Asking to speak to provider to see if the scan is necessary, Ed Sutten to bedside.
--- NOTE | 2025-06-20 22:05 | EDRN ---
Pt is now agreeable to CT scan, CT scan has a different pt on the table and will call for pt when they can take him.
--- NOTE | 2025-06-20 22:17 | EDRN ---
mineral technologist called, pt is refusing to have scan.
--- NOTE | 2025-06-20 22:25 | EDRN ---
Per cytogenetic technologist the study was completed.
[2025-06-20 22:41] VITALS: BP 107/73
[2025-06-20 23:00] VITALS: BP 123/57
[2025-06-21] VITALS (12 sets, daily range): BP systolic 102–121; BP diastolic 60–67; BMI 24.5
[2025-06-21] MEDS: OFIRMEV 100 IV ×2 (00:41→07:48)
[2025-06-21] MEDS: AUGMENTIN 875 MG/125 MG 1 TABLET PO ×2 (00:41→07:46)
--- NOTE | 2025-06-21 00:46 | HPS.HSE ---
Addendum entered and electronically signed by REX Navarro 06/21/25 03:05:
change ivf to NSS as pt too anxious about normosol
Original Note:
Family Physician
-
Family Physician: * NONE
Chief Complaint
-
abd pain
History of Present Illness
35-year-old male presenting to the emergency department today with concerns of right lower quad abdominal pain over the past 18 hours. Gradually worsening throughout the day today associated nausea. Was diaphoretic and chills during pain, but unsure
if he actually had fever. Was diagnosed with appendicitis 8 months ago treated medically. LAst admit refused iv zosyn but was agreeable to augmentin at d/c.
ER Treatments:
WBC 12.8
Toradol iv- which did help decrease pain (currently 01/14)
After discussion -was willing to take augmentin as he tolerated that in past. Not agreeable to iv abx yet
CT abd:IMPRESSION:
Acute appendicitis. No evidence for perforation or periappendiceal abscess.
Medical History
Past Medical History
Past Medical History: Reports None
Past Surgical History: Reports None
Social History
Tobacco: Non-smoker
Alcohol: None
Drug: None
Personal: Single
Living: Alone
Employment: Employed
Family History
Family History: Not pertinent
Allergies / Home Medications
Allergies reflects when Allergies were last updated in [facility].
Home Medications with original date entered in [facility]
Allergy/Medication List:
Allergies
Allergy/AdvReac Type Severity Reaction Status Date / Time
Quinolones Allergy Severe severe Verified 06/21/25 00:40
myalgias,
neuropathy,
and known
rupture
ibuprofen Allergy UPPER BACK Verified 06/21/25 00:40
PAIN BALL
IN THROAT
lidocaine AdvReac Intermediate neurological Verified 06/21/25 00:40
effects
Home Medications
Many Supplement
No Meds [No Current Medications] 06/20/25
Review of Systems
-
History Source: Patient
A 12 point ROS was completed and negative except as noted: Yes
Constitutional: Reports Chills
EENT: Reports No Symptoms
Respiratory: Reports No Symptoms
Cardiac: Reports No Symptoms
Abdomen/GI: Reports Abdominal Pain, Nausea, Diarrhea and Pain (More severe in RLQ but also has pain in lower left abd too Has also felt discomfort in rectum/prostate/scrotal)
: Reports No Symptoms
Musculoskeletal: Reports No Symptoms
Skin: Reports No Symptoms
Neurological: Reports No Symptoms
Endocrine: Reports No Symptoms
Hematologic/Lymphatic: Reports No Symptoms
Psych: Reports No Symptoms
Physical Exam
Vital Signs
Vital Signs
Temp Pulse Resp BP Pulse Ox
102.3 F H 98 18 121/60 99
06/21/25 00:31 06/21/25 00:31 06/21/25 00:31 06/21/25 00:31 06/21/25 00:31
Physical Exam
General: Well Developed, Well Nourished, No Apparent Distress, Comfortable, Conversant and Pain (3/10)
HEENT: NormoCephalic, Anicteric, Moist mucous membranes and Atraumatic
Respiratory: Clear and Non Labored Respirations
Cardiac: S1/S2 and Regular Rhythm
Breast: Deferred by me
GI: Soft, Tender (Tenderness RLQ and low abd) and Distended (mild ); No Non Tender or Non Distended
Rectal: Deferred by Provider
Genito-urinary: Deferred by me
Musculoskeletal: No Clubbing and No Cyanosis
Skin: Warm (skin felt very warm by provider- noted to have fever 102)
Neuro: Awake, Alert, Oriented and AO x 3
Hematologic/Lymphatic: No Lymphadenopathy
Psych: Calm
Laboratory Results
-
06/20/25 20:13
06/20/25 20:13
Laboratory Results
Total Bilirubin 1.1 mg/dl (0.2-1.3) 06/20/25 20:13
AST 28 U/L (17-59) 06/20/25 20:13
ALT 29 U/L (0-50) 06/20/25 20:13
Alkaline Phosphatase 57 U/L (38-126) 06/20/25 20:13
Impression/Plan
-
IMPRESSION:
Acute appendicitis, uncomplicated
PLAN:
#acute appendicitis
-NPO x meds--> possible OR if pt agreeable (declined surgery last admit in Nov)
-IVF: normosol @125
-Pain control: Pt would prefer no narcotic, ER gave toradol which helped pain, iv ofirmev (as pt stated worked well last admit)
-Refusing iv antibiotics at this time as he had bad experience iv abx (even though it was cipro). Was able to get him to take augmentin for now as he tolerated that last admit. Antibiotics is better than no antibiotics at all and we will order
Augmentin and monitor symptoms.
WBC 12.8 --> repeat in am
-febrile to 102 in ED--> ofirmev dose ordered
-Pt with many analytical questions- encourage pt to discuss in am with surgeon
DVT proph: SCD
Full code
[2025-06-21] MEDS: NSS 1000 IV (05:03)
[2025-06-21] MEDS: TORADOL 15 MG IV (05:03)
[2025-06-21 05:33] LABS: Hematocrit 40.1 % (39.0-52.0); Hemoglobin 14.0 g/dL (13.0-18.0); Mean Corp Hgb Conc. 34.9 g/dL (33.0-37.0); Mean Corpuscular Volume 83.5 fL (80.0-94.0); Nucleated Red Blood Cells % 0 % (-); Platelet Count 148 10^3/uL (130-400); Red Cell Dist. Width 12.6 % (11.5-14.5)
[2025-06-21 06:01] LABS: Blood Urea Nitrogen 14 mg/dl (9-20); Calcium 8.5 mg/dl (8.4-10.2); Carbon Dioxide 24 mmol/L (22-30); Chloride 102 mmol/L (98-107); Estimated Creatinine Clearance > 125 ml/min; Glucose 110 mg/dl (70-99); Potassium 3.8 mmol/L (3.5-5.1); Sodium 133 mmol/L (135-145); eGFR > 60.00
--- NOTE | 2025-06-21 11:18 | W.PN.GS2 ---
Addendum entered and electronically signed by Milo Russell MD 06/21/25 14:11:
I was physically present and personally performed the guzman portions of the surgical evaluation and/or procedure with the resident. I discussed the findings, reviewed the resident�s note, and confirmed the medical decision-making. I provided direct
supervision as required and agree with the assessment and plan as documented with the following additions/corrections:
Recurrent lower abd pain, mainly at suprapubic area, persistent today without n/v. Ttp to suprapubic area > BLQ on exam with light guarding. Scan and labs reviewed with the patient. Dx recurrent appendicitis. OCTOR for lap appy. He is agreeable to a
dose of IV abx preop. Informed consent obtained.
Original Note:
Today's Communication / Plan
-
Laparoscopic appendectomy today.
Assessment / Plan
-
#acute appendicitis
-NPO x meds--> possible OR if pt agreeable (declined surgery last admit in Nov)
-IVF: normosol @125
-Pain control: Pt would prefer no narcotic, ER gave Toradol which helped pain, iv ofirmev (as pt stated worked well last admit)
-Refusing iv antibiotics at this time as he had bad experience iv abx (even though it was cipro).
Was able to get him to take augmentin for now as he tolerated that last admit.
-Antibiotics is better than no antibiotics at all and we will order Augmentin and monitor symptoms.
WBC 12.8 --> 14.9 (h)
-febrile to [address] Scan Abdomen- acute appendicitis. No evidence for perforation or periappendiceal abscess.
-Pt with many analytical questions-discussedd with surgeon and he is willing to do laparoscopic appendectomy today.
Subjective Data
-
Date of Service: June 21, 2025
patient has a concern for lower abdominal pain which is constant dull in nature, aggravating and relieved by ketorolac, hydromorphone. The pain is non radiating currently not associated with nausea, vomiting, diarrhea, fever, chills.
Similar episodes in the past on Nov 2024 and pt refused for the surgery and discharged with Augmentin.
Objective Data
-
Vital Signs
Temp Pulse Resp BP Pulse Ox
99.2 F 89 18 110/61 97
06/21/25 07:00 06/21/25 07:00 06/21/25 07:00 06/21/25 07:00 06/21/25 07:00
Lab Results
06/21/25 05:02
06/21/25 05:02
Calcium 8.5 mg/dl (8.4-10.2) 06/21/25 05:02
Total Bilirubin 1.1 mg/dl (0.2-1.3) 06/20/25 20:13
AST 28 U/L (17-59) 06/20/25 20:13
ALT 29 U/L (0-50) 06/20/25 20:13
Alkaline Phosphatase 57 U/L (38-126) 06/20/25 20:13
Total Protein 8.3 g/dl (6.3-8.2) H 06/20/25 20:13
Albumin 5.0 g/dl (3.5-5.0) 06/20/25 20:13
Physical Exam
-
General: Well Developed, Well Nourished, No Apparent Distress, Comfortable, Conversant and Pain (01/14)
Respiratory: Clear and Non Labored Respirations
Cardiac: S1/S2 and Regular Rhythm
GI: Soft, Tender (Tenderness RLQ, LLQ, Suprapubic ) and Distended (mild ); No Non Tender or Non Distended
Musculoskeletal: No Clubbing and No Cyanosis
Skin: Warm (skin felt very warm by provider- noted to have fever 102)
Patient has a ramos catheter: No
Patient has a central line: No
--- NOTE | 2025-06-21 12:41 | CM ---
Addendum entered by Debo Ferguson 06/21/25 13:41:
Information left beside. patient in OR.
Original Note:
Patient seen bedside. IA completed.
Patient lives alone in a 2 story home.
Independent prior to admission.
Patient drives.
Patient has no hx VN.
observation form explained to patient.
Patient states his insurance was billed last admission for an appendectomy which he did not have, will give patient business office phone number..
Patient stated he has no PCP, will provide information.
Pharmacy: [facility]
Plan: home no needs.
--- NOTE | 2025-06-21 14:11 | W.IMMPOSTOP ---
Surgical Immed Post Op Note
-
Primary Surgeon: Yvonne
Assisting: José JENKINS
Pre-op Diagnosis: Acute appendicitis
Post-op Diagnosis: Acute suppurative appendicitis
Procedure Performed: Laparoscopic appendectomy
Anesthesia Type: GETA
Specimen / Cultures: Appendix
Estimated Blood Loss: 10cc
Complications: Superficial capsular injury to left liver lobe with 5cc of bleeding, spontaneous hemostasis
Operative Findings: Moderately inflamed appendix with scant yellow seropurulent fluid in the right lower quadrant, right upper quadrant and pelvis
--- NOTE | 2025-06-21 14:13 | OR.RPT ---
Addendum entered and electronically signed by Milo Russell MD 06/21/25 15:39:
The assistance of José JENKINS was required due to the complexity of the procedure. During the procedure she assisted with retraction, visualization, resection, and closure of the wound.
Original Note:
Operative Report
Operative Report
Primary Surgeon: Yvonne
Assisting: José JENKINS
Pre-op Diagnosis: Acute appendicitis
Post-op Diagnosis: Acute suppurative appendicitis
Procedure Performed: Laparoscopic appendectomy
Anesthesia Type: GETA
Specimen / Cultures: Appendix
Estimated Blood Loss: 10cc
Complications: Superficial capsular injury to left liver lobe with 5cc of bleeding, spontaneous hemostasis
Operative Findings: Moderately inflamed appendix with scant yellow seropurulent fluid in the right lower quadrant, right upper quadrant and pelvis
Date of Surgery: 06/21/25
Indications: This 35M developed right lower quadrant abdominal pain and on workup was found to have acute appendicitis. Laparoscopic appendectomy was elected.
Description of procedure: The patient was placed on the operating table in the supine position. General anesthesia was induced. A time-out was completed verifying correct patient, procedure, site, positioning, and special equipment prior to
beginning this procedure. An orogastric tube was placed. The abdomen was prepped and draped in the usual sterile fashion. A stab incision was made in left upper quadrant and the Veress needle was inserted. Proper position was confirmed by aspiration
and saline meniscus test. The abdomen was insufflated with carbon dioxide to a pressure of 12 mmHg. The patient tolerated insufflation well.
A 5mm optical trocar was then inserted at the left lower quadrant. The laparoscope was inserted and the abdomen inspected. A superficial capsular needle puncture to the left liver lobe was identified with scant bleeding. This was observed several
minutes and hemostasis was assured. No other injuries from initial trocar placement or Veress needle insertion were noted. Additional trocars were then inserted in the following locations: a 12-mm trocar at the umbilicus and a 5-mm trocar midline in
the suprapubic space. The abdomen was inspected and no abnormalities were found. The table was placed in the Trendelenburg position with the right side up. The tip of the appendix was deep in the pelvis and lightly adherent to the pelvic wall. It
was gently bluntly swept cephalad exposing the tip. The tip was then gently grasped with an atraumatic grasper and retracted toward the patient�s feet and abdominal wall. This maneuver exposed the appendiceal blood supply which was controlled with
the Ligasure device. Following this, a laparoscopic linear cutting stapler with a 45mm anne load was deployed and used to transect the appendix at its base incorporating a small cuff of cecum. The appendix was placed in an endoscopic retrieval bag,
removed through the umbilical port, and passed off the table as a specimen.
We then turned our attention to the staple line, which was noted to be hemostatic. The right upper and lower quadrants and pelvis were irrigated thoroughly with warm sterile saline and suctioned clear. The umbilical trocar site was closed at the
fascial level laparoscopically with 2-0 PDS under direct vision. Secondary trocars were removed under direct vision and noted to be hemostatic. The laparoscope was withdrawn and the abdomen was allowed to collapse. The skin was closed with
subcuticular sutures of 4-0 monocryl and topical skin adhesive. The orogastric tube was removed.
The patient tolerated the procedure well and was taken to the postanesthesia care unit in stable condition.
[2025-06-21] MEDS: NSS IV (15:43)
--- NOTE | 2025-06-21 16:28 | W.DS.TRANS ---
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
-
Discharge Instructions:
Discharge Diagnosis/Procedures Acute appendicitis status post laparoscopic
appendectomy
Diet As tolerated,Regular
Additional Diets Eat small meals at first as bloating is common,
this should improve over the next week
Activity No strenuous activity
Additional Activity do not lift over 20lbs for the next 2-3 weeks.
Light exercise such as walking and climbing
stairs is ok as you tolerate it.
Driving Restrictions No driving for 24 hours
Bathing Restrictions OK to Shower
Wound Care Allow the glue to flake off your incisions on
its own over the next 2-3 weeks. Avoid scrubbing
or picking it off. Ok to shower beginning 24
hours after surgery. Use soap and water to
gently wash your abdomen, pat dry with towel.
Do not apply creams or lotions to your incisions
. No swimming or soaking in tubs or pools for
the next 2 weeks.
Instructions:
Stand-Alone Forms:
Changes to Home Medications: No
Discharge Medications:
DC Medications w/original date entered in [employer]
NAC 06/21/25
Tudecon 06/21/25
Vitamin C-Bioflavonoids 06/21/25
amino acids 1 cap PO 06/21/25
amoxicillin 875 mg-potassium clavulanate 125 mg tablet 1 tab PO Q12 antibiotic #10 tabs 06/21/25
ascorbic acid 1,000 mg-bioflavonoids 100 mg tablet, extended release tab PO 06/21/25
boron citrate 3 mg tablet mg PO 06/21/25
cod liver oil 1 cap PO DAILY 06/21/25
copper 2 mg tablet 2 mg PO 06/21/25
glutamic acid 500 mg capsule mg PO 06/21/25
lysine 500 mg capsule 500 mg 06/21/25
magnesium-tartaric ac-rhubarb 06/21/25
tramadol 50 mg tablet 25 - 50 mg (0.5 - 1 x 50 mg) PO Q6HPRN PRN severe pain/breakthrough pain #5 tabs 06/21/25
vitamin B complex 1 cap PO DAILY 06/21/25
vitamin E 100 unit tablet unit PO 06/21/25
zinc 15 mg tablet 15 mg PO DAILY 06/21/25
Home Medication Changes
Pending Results: No
== END 2025-06-21 19:15 | disposition home or self-care (01) ==
LOC: PACU 01:55
PROVIDERS: Emergency Medicine; Nurse Practitioner Family; ATTENDING PHYSICIAN Surgery; EMERGENCY PHYSICIAN Emergency Medicine
DX: K35.80 Unspecified acute appendicitis (principal)
CPT/HCPCS: 44970; 74177; 80048; 80053; 85025; 88304; 96361; 96374; 99284; G0378; Q9967